=== PATIENT | female | born 1950 | race Caucasian/White ===

== ENCOUNTER → 2019-06-04 11:47 | Outpatient (BNVA) | payer MEDICARE, OTHER, SELFPAY | PROVIDERS: Family Provider Nurse Practitioner; PCP Nurse Practitioner; Visit Provider Nurse Practitioner Family | DX: S52.512A Displaced fracture of left radial styloid process, initial encounter for closed fracture (principal); W19.XXXA Unspecified fall, initial encounter | CPT/HCPCS: 73110 ==

== ENCOUNTER 2019-06-18 14:06 | Outpatient (RCR) | payer MEDICARE, OTHER, SELFPAY | END 2019-06-28 23:59 | disposition home or self-care (01) | LOC: SOT 14:06 | PROVIDERS: Family Provider Nurse Practitioner; PCP Nurse Practitioner; Referring Provider Nurse Practitioner Family; Visit Provider Nurse Practitioner Family | DX: S62.109A Fracture of unspecified carpal bone, unspecified wrist, initial encounter for closed fracture (principal); X58.XXXA Exposure to other specified factors, initial encounter | CPT/HCPCS: 97110; 97165 ==

== ENCOUNTER 2019-06-29 06:00 | Outpatient (RCR) | payer MEDICARE, OTHER, SELFPAY | END 2019-07-29 23:59 | disposition home or self-care (01) | LOC: SOT 06:00 | PROVIDERS: Family Provider Nurse Practitioner; PCP Nurse Practitioner; Referring Provider Nurse Practitioner Family; Visit Provider Nurse Practitioner Family | DX: S62.109D Fracture of unspecified carpal bone, unspecified wrist, subsequent encounter for fracture with routine healing (principal); X58.XXXD Exposure to other specified factors, subsequent encounter | CPT/HCPCS: 97530 ==

== ENCOUNTER → 2019-07-23 10:38 | Outpatient (BNVA) | payer MEDICARE, OTHER, SELFPAY | PROVIDERS: Family Provider Nurse Practitioner; PCP Nurse Practitioner; Visit Provider Nurse Practitioner | DX: M54.9 Dorsalgia, unspecified (principal); M54.5 Low back pain; M54.2 Cervicalgia; M47.814 Spondylosis without myelopathy or radiculopathy, thoracic region; M48.07 Spinal stenosis, lumbosacral region | CPT/HCPCS: 72040; 72072; 72100 ==

== ENCOUNTER → 2019-10-02 12:19 | Outpatient (BNVA) | payer MEDICARE, OTHER, SELFPAY | PROVIDERS: Family Provider Nurse Practitioner; PCP Nurse Practitioner; Visit Provider Nurse Practitioner | DX: I10 Essential (primary) hypertension (principal); J30.89 Other allergic rhinitis | CPT/HCPCS: 80053; 80061 ==

== ENCOUNTER → 2020-01-13 11:40 | Outpatient (BNVA) | payer MEDICARE, OTHER, SELFPAY | PROVIDERS: Family Provider Nurse Practitioner; PCP Nurse Practitioner; Visit Provider Nurse Practitioner | DX: E03.9 Hypothyroidism, unspecified (principal); I10 Essential (primary) hypertension | CPT/HCPCS: 80053; 80061; 84443 ==

== ENCOUNTER → 2020-05-10 14:50 | Outpatient (BNVA) | payer MEDICARE, OTHER, SELFPAY | PROVIDERS: Family Provider Nurse Practitioner; PCP Nurse Practitioner; Visit Provider Nurse Practitioner | DX: I10 Essential (primary) hypertension (principal); E03.9 Hypothyroidism, unspecified | CPT/HCPCS: 80053; 84439; 84443; 84481; 85025 ==

== ENCOUNTER 2020-05-13 13:11 | Outpatient (CLI) | payer MEDICARE, OTHER, SELFPAY | END 2020-05-13 13:12 | disposition home or self-care (01) | LOC: WOUND 13:12 | PROVIDERS: Family Provider Nurse Practitioner; PCP Nurse Practitioner; Visit Provider Thoracic Surgery (Cardiothoracic Vascular Surgery) | DX: L97.312 Non-pressure chronic ulcer of right ankle with fat layer exposed (principal) | CPT/HCPCS: 11042; G0463 ==

== ENCOUNTER 2020-05-20 14:33 | Outpatient (CLI) | payer MEDICARE, OTHER, SELFPAY | END 2020-05-20 14:34 | disposition home or self-care (01) | LOC: WOUND 14:35 | PROVIDERS: Family Provider Nurse Practitioner; PCP Nurse Practitioner; Visit Provider Thoracic Surgery (Cardiothoracic Vascular Surgery) | DX: L97.312 Non-pressure chronic ulcer of right ankle with fat layer exposed (principal) | CPT/HCPCS: 11042; 87070; 87077; 87176; 87186; 87205 ==

== ENCOUNTER → 2020-11-23 10:37 | Outpatient (BNVA) | payer MEDICARE, OTHER, SELFPAY | PROVIDERS: Family Provider Nurse Practitioner; PCP Nurse Practitioner; Visit Provider Nurse Practitioner | DX: I10 Essential (primary) hypertension (principal); E03.9 Hypothyroidism, unspecified | CPT/HCPCS: 80053; 80061; 84443 ==

== ENCOUNTER → 2021-05-16 09:59 | Outpatient (BNVA) | payer MEDICARE, OTHER, SELFPAY | PROVIDERS: Family Provider Nurse Practitioner; PCP Nurse Practitioner; Visit Provider Nurse Practitioner | DX: E03.9 Hypothyroidism, unspecified (principal); M81.0 Age-related osteoporosis without current pathological fracture; I10 Essential (primary) hypertension; R53.83 Other fatigue | CPT/HCPCS: 80053; 80061; 82306; 84443 ==

== ENCOUNTER → 2021-10-10 13:50 | Outpatient (BNVA) | payer MEDICARE, OTHER, SELFPAY | PROVIDERS: Family Provider Nurse Practitioner; PCP Nurse Practitioner; Visit Provider Nurse Practitioner | DX: F39 Unspecified mood [affective] disorder (principal); J30.89 Other allergic rhinitis; E03.9 Hypothyroidism, unspecified; I10 Essential (primary) hypertension | CPT/HCPCS: 80053; 80061; 84443 ==

== ENCOUNTER → 2022-02-13 13:28 | Outpatient (BNVA) | payer MEDICARE, OTHER, SELFPAY | PROVIDERS: Family Provider Nurse Practitioner; PCP Nurse Practitioner; Visit Provider Nurse Practitioner | DX: M25.531 Pain in right wrist (principal) | CPT/HCPCS: 73110 ==

== ENCOUNTER → 2022-03-21 10:55 | Outpatient (BNVA) | payer MEDICARE, OTHER, SELFPAY | PROVIDERS: Family Provider Nurse Practitioner; PCP Nurse Practitioner; Visit Provider Nurse Practitioner | DX: E03.9 Hypothyroidism, unspecified (principal); M25.50 Pain in unspecified joint | CPT/HCPCS: 80053; 84443; 85025; 85651; 86140 ==

== ENCOUNTER → 2022-03-29 10:55 | Outpatient (BNVA) | payer MEDICARE, OTHER, SELFPAY | PROVIDERS: Family Provider Nurse Practitioner; PCP Nurse Practitioner; Visit Provider Nurse Practitioner | DX: R52 Pain, unspecified (principal) | CPT/HCPCS: 73130; 73522 ==

== ENCOUNTER → 2022-06-21 11:32 | Outpatient (BNVA) | payer MEDICARE, OTHER, SELFPAY | PROVIDERS: Family Provider Nurse Practitioner; PCP Nurse Practitioner; Visit Provider Nurse Practitioner | DX: M47.812 Spondylosis without myelopathy or radiculopathy, cervical region (principal) | CPT/HCPCS: 72040 ==

== ENCOUNTER → 2022-11-07 10:54 | Outpatient (BNVA) | payer MEDICARE, OTHER, SELFPAY | PROVIDERS: Family Provider Nurse Practitioner; PCP Nurse Practitioner; Visit Provider Nurse Practitioner | DX: E03.9 Hypothyroidism, unspecified (principal); I10 Essential (primary) hypertension; E55.9 Vitamin D deficiency, unspecified | CPT/HCPCS: 80053; 80061; 82306; 82607; 84443 ==

== ENCOUNTER → 2023-06-13 10:32 | Outpatient (BNVA) | payer MEDICARE, OTHER, SELFPAY | PROVIDERS: Family Provider Nurse Practitioner; PCP Nurse Practitioner; Visit Provider Nurse Practitioner | DX: I10 Essential (primary) hypertension (principal); E03.9 Hypothyroidism, unspecified; F39 Unspecified mood [affective] disorder; Z79.899 Other long term (current) drug therapy | CPT/HCPCS: 80053; 80061; 84439; 84443; 84481 ==

== ENCOUNTER → 2023-07-18 11:19 | Outpatient (BNVA) | payer MEDICARE, OTHER, SELFPAY | PROVIDERS: Family Provider Nurse Practitioner; PCP Nurse Practitioner; Visit Provider Nurse Practitioner | DX: M47.897 Other spondylosis, lumbosacral region (principal); M16.0 Bilateral primary osteoarthritis of hip; M47.892 Other spondylosis, cervical region; M54.2 Cervicalgia; M54.50 Low back pain, unspecified; M79.604 Pain in right leg; M79.605 Pain in left leg; M25.50 Pain in unspecified joint | CPT/HCPCS: 72040; 72070; 72100; 73522 ==

== ENCOUNTER → 2023-12-18 16:11 | Outpatient (BNVA) | payer MEDICARE, OTHER, SELFPAY | PROVIDERS: Family Provider Nurse Practitioner; PCP Nurse Practitioner; Visit Provider Nurse Practitioner | DX: I10 Essential (primary) hypertension (principal); E03.9 Hypothyroidism, unspecified | CPT/HCPCS: 80053; 80061; 84439; 84443 ==

== ENCOUNTER 2024-05-11 09:44 | Emergency (ER) | payer MEDICARE, OTHER, SELFPAY ==
[2024-05-11 10:22] VITALS: BP 206/87; PULSE 74; RESP 16; TEMP 36.8; O2SAT 97; BMI 27.4
[2024-05-11 10:43] LABS: Basophils % 0.2 %; Eosinophils % 0.1 %; Hematocrit 42.7 % (36-47); Lymphocytes # 1.1 10^3/uL (0.8-4.8); Lymphocytes % 9.9 %; Mean Corpuscular HGB Conc 32.3 g/dL (30-55); Mean Corpuscular Hemoglobin 29.2 pg (27-33); Mean Corpuscular Volume 90.5 fl (85-98); Mean Platelet Volume 9.4 fL (7.4-10.4); Monocytes # 0.5 10^3/uL (0.2-0.9); Monocytes % 4.2 %; Neutrophils # 9.66 10^3/uL (1.8-7.7); Neutrophils % 85.2 %; Nucleated Red Blood Cells % 0 %; Platelet Count 213 10^3/cmm (157-399); Red Blood Count 4.72 10^6/uL (3.85-5.65); Red Cell Distribution Width 13.8 % (12.1-15.1); White Blood Count 11.33 10^3/uL (3.29-11.43)
[2024-05-11 10:56] VITALS: BP 188/93; PULSE 74; RESP 18; O2SAT 99
[2024-05-11 11:03] LABS: Alanine Aminotransferase 19 U/L (0-33); Albumin Level 4.2 g/dL (3.5-5.2); Alkaline Phosphatase 80 U/L (35-105); Aspartate Amino Transferase 25 U/L (0-32); Blood Urea Nitrogen 9 mg/dL (8-23); Calcium 9.7 mg/dL (8.5-10.5); Carbon Dioxide 26 mmol/L (22-29); Chloride 98 mmol/L (98-107); Globulin 2.7 g/dL (1.3-4.6); Glucose 112 mg/dL (65-115); Osmolality Calculated 281 mOsm/kg (285-295); Sodium 136 mmol/L (136-145); Total Bilirubin 0.3 mg/dL (0.15-1.2); Total Protein 6.9 g/dL (6.6-8.7)
--- NOTE | 2024-05-11 12:23 | W.ED.GENADLT ---
HPI - General Adult General: Chief complaint: General Medical Stated complaint: hypertension Time Seen by Provider: 05/11/24 11:06 History of Present Illness: 74-year-old female reports that she ate some leftover ham and sauerkraut on Sunday, 2 days ago. She started having stomach upset and diarrhea shortly thereafter. She reports diarrhea all night and into Sunday. Yesterday she noticed her blood pressure had been high. She typically takes olmesartan 10 to 20 mg as needed for elevated blood pressure. Patient reports that since her blood pressure was high yesterday after taking some olmesartan she went into the emergency department. She had blood work and IV blood pressure medication. She reports her blood work was reassuring and the blood pressure came down after 2 doses of IV hydralazine. However it came back up short time later. She was up during the night several times checking her blood pressure noting it to be between 200 & 215 systolic. Patient reports no visual changes, chest pain, anginal equivalents, neurologic symptoms, or other signs of hypertensive emergency. Patient reports she has not had any diarrhea today. She has not had any bloody stools. No abdominal pain. No fever or chills. She does not endorse any nausea or vomiting but states she just cannot bring herself to eat. No URI symptoms, cough, sputum production. No rashes or wounds. Patient does suffer from anxiety and has been taking 0.25 mg of Xanax as needed. Patient reports 1 out of 10 frontal headache Associated symptoms: Deny chest pain, dyspnea, nausea, rash, syncope or vomiting Related Data Home Medications Medication Instructions Recorded Confirmed fexofenadine 60 mg tablet (Amira 60 mg PO DAILY 06/04/19 12/18/23 Allergy) Previous Rx's Medication Instructions Recorded hydrocolloid dressing 4 X 4 #5 ea 11/10/22 (Durafiber Dressing) olmesartan 20 mg tablet 20 mg PO .at bedtime #90 tabs 01/26/23 betamethasone, augmented 0.05 % 1 applic topical BID PRN itching 01/29/23 topical cream #50 grams mupirocin 2 % topical ointment 1 applic topical BID #22 grams 01/29/23 zonisamide 25 mg capsule (Zonegran) 25 mg PO BID #180 caps 04/30/23 alprazolam 1 mg tablet (Xanax) 1 mg PO DAILY PRN anxiety #30 tabs 12/18/23 citalopram 40 mg tablet 40 mg PO DAILY #90 tabs 12/18/23 levothyroxine 100 mcg tablet 100 mcg PO QDAY #90 tabs 12/18/23 fluticasone propionate 50 2 spray intranasal DAILY PRN 02/14/24 mcg/actuation nasal allergy symptoms #16 grams spray,suspension (Flonase Allergy Relief) Allergies Allergy/AdvReac Type Severity Reaction Status Date / Time cephalexin [From Keflex] Allergy Rash Verified 05/11/24 10:28 Penicillins Allergy Rash Verified 05/11/24 10:28 duloxetine [From Cymbalta] AdvReac Severe ADR-Gastrointestinal Verified 05/11/24 10:28 Upset Review of Systems General: Reports: 10 or more systems reviewed and unremarkable except in HPI and below Const: Denies: fever(s), chills or body aches Eyes: Denies: change in vision ENMT: Denies: throat pain Card: Denies: chest pain, edema or syncope Resp: Denies: dyspnea or productive cough GI: Denies: abdominal pain, nausea or vomiting : Denies: flank pain, dysuria or urinary frequency Musc: Denies: neck pain, back pain, extremity pain or extremity swelling Skin/Breast: Denies: rash or erythema Neuro: Denies: numbness in extremities, weakness in extremities, lack of coordination or difficulty walking PFSH ED PFSH: Medical History Post-menopausal osteoporosis Chronic back pain Adult hypothyroidism Environmental and seasonal allergies Seasonal mood disorder Surgical History History of dilatation and curettage History of sinus surgery Family History Other Arthritis Hypertension Social History Smoking and tobacco/nicotine status: never used tobacco/nicotine Second hand smoke exposure: No Alcohol intake: never Substance/Drug Use: never Adopted: No Caregiver/support person: No Lives independently: Yes Household members: none Housing: House Marital status: service: No Do you think of yourself as: Straight/Heterosexual Current gender identity: Female Physical Exam Narrative: EXAM NARRATIVE: Alert, oriented, sitting up, conversational. Blood pressure in the 180s over 90s. Patient seems to be very upset by her blood pressure. She seems to have an anxious affect. She explains that she has taken olmesartan 40 mg total for the last 12 hours and her blood pressure is still high. She has hyperactive bowel sounds but otherwise of normal abdominal exam. No flank tenderness. Grade 2 quiet systolic murmur suggested right of sternum. No JVD. Const: COMMON NORMALS: no limitations, alert and well nourished EXAM LIMITATIONS: no altered mental status HENMT: COMMON NORMALS: normocephalic, atraumatic and external ears normal HEAD & SCALP: normocephalic and atraumatic EXTERNAL EAR: Yes external ears normal MOUTH: no muffled voice Eye: COMMON NORMALS: EOMs intact bilaterally, conjunctivae normal and no scleral icterus CONJUNCTIVA: Yes conjunctivae normal Neck/C-Spine: COMMON NORMALS: no JVD GENERAL: Yes normal visual inspection and Yes trachea midline Resp: COMMON NORMALS: normal respiratory effort, No use of accessory muscles and clear to auscultation bilaterally AUSCULTATION: clear to auscultation bilaterally Cardio: COMMON NORMALS: no JVD, regular rate and regular rhythm RATE: regular rate RHYTHM: regular rhythm GI: COMMON NORMALS: Soft to palpation and non-tender PALPATION: Yes Soft to palpation and No Guarding due to palpation present (GI) Extremity: COMMON NORMALS: normal to inspection Neuro: COMMON NORMALS: moves all extremities, no focal motor deficits and no sensory deficits noted SENSORIUM/ORIENTATION: Yes alert SPEECH: speech normal Psych: COMMON NORMALS: mental status grossly normal, Normal thought process present, cooperative and speech normal SPEECH: Yes normal speech THOUGHT PROCESS: Normal thought process present Skin: COMMON NORMALS: no rashes or lesions noted, turgor normal and no jaundice GENERAL SKIN EXAM: no rashes or lesions noted and turgor normal Course Vital Signs: Vital signs: Vital Signs Temperature 98.2 F 05/11/24 10:22 Pulse Rate 74 05/11/24 10:56 Respiratory Rate 18 05/11/24 10:56 Blood Pressure 192/84 05/11/24 12:35 Pulse Oximetry 99 05/11/24 10:56 Oxygen Delivery Me thod Room Air 05/11/24 10:56 MDM - General Adult Medical Decision Making 1. Hypertensive urgency without any hypertensive emergency. Frontal headache may be related to blood pressure or maybe not. Patient does seem very upset about her blood pressure and anxious in general. I suspect this is contributing to her high blood pressure. In general, it seems that her elevated blood pressure is secondary to underlying illness rather than the primary cause of her symptoms. Patient has agreed to try 1/2 mg of Ativan and some clonidine to see if it helps rather than using IV blood pressure medication at this time. 2. UTI is considered along with gastroenteritis, dehydration, electrolyte disturbances, renal dysfunction, colitis, enteritis, no other causes of acute diarrhea. The patient's abdominal exam was benign and she does not have tachycardia or fever. At this time I do not find any indication for CT scan as the pretest probability for significant colitis, ischemia, perforation, abscess, etc. is low. Update: After patient was given lorazepam, her blood pressure was down to 133 over 80s. Daughter states she seemed much more at peace and comfortable. The clonidine was given almost as a placebo type medication at a low dose of 0.1 mg. I hypothesized that we do have dramatic improvement in her blood pressure with lorazepam alone. I think this was proven since the blood pressure drop before clonidine would have even had a chance to absorb. Additionally, I also hypothesized that as soon as I began talking to the patient again in the room her blood pressure would come back up. This was proven true as after I explained all of her findings and the impression, her blood pressure came back up into the upper 140s and she began asking about do I have a blockage anywhere in my body, and questioning multiple different vague somatic symptoms. She seems to have anxiety disorder and it is unclear to me whether this is acute or chronic. Regardless, I do not recommend any further treatment of her blood pressure since it seems to be a secondary problem rather than the primary problem. She has not had any diarrhea here. Her labs are reassuring. No UTI. Patient may be discharged home. Have advised that she only check her blood pressure over the next 3 days if she has strokelike symptoms, visual changes, chest pressure or tightness, shortness of breath, urinary changes or swelling. Otherwise, I would wait 3 days before checking blood pressure again because it seems to upset her and create a vicious cycle Lab Data 05/11/24 10:35 05/11/24 10:35 Laboratory Results WBC 11.33 10^3/uL (3.29-11.43) 05/11/24 10:35 RBC 4.72 10^6/uL (3.85-5.65) 05/11/24 10:35 Hgb 13.80 g/dL (11.27-16.99) 05/11/24 10:35 Hct 42.7 % (36-47) 05/11/24 10:35 MCV 90.5 fl (85-98) 05/11/24 10:35 MCH 29.2 pg (27-33) 05/11/24 10:35 MCHC 32.3 g/dL (30-55) 05/11/24 10:35 RDW 13.8 % (12.1-15.1) 05/11/24 10:35 Plt Count 213 10^3/cmm (157-399) 05/11/24 10:35 MPV 9.4 fL (7.4-10.4) 05/11/24 10:35 Neut % (Auto) 85.2 % 05/11/24 10:35 Lymph % (Auto) 9.9 % 05/11/24 10:35 [place] % (Auto) 4.2 % 05/11/24 10:35 Eos % (Auto) 0.1 % 05/11/24 10:35 Baso % (Auto) 0.2 % 05/11/24 10:35 Neut # (Auto) 9.66 10^3/uL (1.8-7.7) H 05/11/24 10:35 Lymph # (Auto) 1.1 10^3/uL (0.8-4.8) 05/11/24 10:35 [place] # (Auto) 0.5 10^3/uL (0.2-0.9) 05/11/24 10:35 Eos # (Auto) 0.0 10^3/uL (0.0-0.8) 05/11/24 10:35 Baso # (Auto) 0.0 10^3/uL (0.0-0.1) 05/11/24 10:35 Nucleated RBC % (auto) 0 % 05/11/24 10:35 Nucleated RBCs # 0.0 /100WBC 05/11/24 10:35 Sodium 136 mmol/L (136-145) 05/11/24 10:35 Potassium 4.0 mmol/L (3.5-5.1) 05/11/24 10:35 Chloride 98 mmol/L (98-107) 05/11/24 10:35 Carbon Dioxide 26 mmol/L (22-29) 05/11/24 10:35 Anion Gap 16.0 (5-19) 05/11/24 10:35 BUN 9 mg/dL (8-23) 05/11/24 10:35 Creatinine 0.7 mg/dL (0.5-0.9) 05/11/24 10:35 GFR Calculation Not Reportable 05/11/24 10:35 Glucose 112 mg/dL (65-115) 05/11/24 10:35 Calculated Osmolality 281 mOsm/kg (285-295) L 05/11/24 10:35 Calcium 9.7 mg/dL (8.5-10.5) 05/11/24 10:35 Total Bilirubin 0.3 mg/dL (0.15-1.2) 05/11/24 10:35 AST 25 U/L (0-32) 05/11/24 10:35 ALT 19 U/L (0-33) 05/11/24 10:35 Alkaline Phosphatase 80 U/L (35-105) 05/11/24 10:35 Total Protein 6.9 g/dL (6.6-8.7) 05/11/24 10:35 Albumin 4.2 g/dL (3.5-5.2) 05/11/24 10:35 Globulin 2.7 g/dL (1.3-4.6) 05/11/24 10:35 Urine Color Yellow (Yellow) 05/11/24 12:33 Urine Appearance Clear (CLEAR) 05/11/24 12: Urine pH 7.0 (5-7) 05/11/24 12: Ur Specific [place] 1.007 (1.005-1.030) 05/11/24 12:33 Urine Protein Negative (Negative) 05/11/24 12: Urine Glucose (UA) Negative (Normal) 05/11/24 12: Urine Ketones 1+ (Negative) H 05/11/24 12:33 Urine Blood Negative (Negative) 05/11/24 12:33 Urine Nitrate Negative (Negative) 05/11/24 12:33 Urine Bilirubin Negative (Negative) 05/11/24 12:33 Urine Urobilinogen 0.2 mg/dL (Negative) 05/11/24 12:33 Ur Leukocyte Esterase Negative (Negative) 05/11/24 12:33 Urine RBC 0-2 /hpf (0-2) 05/11/24 12:33 Urine WBC 0-5 /hpf (0-5) 05/11/24 12:33 Ur Squamous Epith Cells 0-5 /hpf (0-5) 05/11/24 12:33 Amorphous Sediment Not Reportable 05/11/24 12:33 Urine Bacteria None seen /hpf (NONE) 05/11/24 12:33 Hyaline Casts 0.40 /lpf 05/11/24 12:33 No radiology studies performed this visit Discharge Plan Discharge Patient Disposition: Home Clinical Impression: Situational hypertension Condition: Stable Prescriptions: No Action fexofenadine [Amira Allergy] 60 mg tablet 60 mg PO DAILY (DME) hydrocolloid dressing [Durafiber Dressing] 4 X 4 bandage See Rx Instructions .Route Qty: 5 0RF Rx Instructions: As directed citalopram 40 mg tablet 40 mg PO DAILY Qty: 90 1RF alprazolam [Xanax] 1 mg tablet 1 mg PO DAILY PRN (Reason: anxiety) Qty: 30 5RF levothyroxine 100 mcg tablet 100 mcg PO QDAY Qty: 90 1RF olmesartan 20 mg tablet 20 mg PO .at bedtime Qty: 90 0RF betamethasone, augmented 0.05 % cream 1 applic TOPICAL BID PRN (Reason: itching) Qty: 50 2RF mupirocin 2 % ointment 1 applic topical BID Qty: 22 0RF zonisamide [Zonegran] 25 mg capsule 25 mg PO BID Qty: 180 1RF fluticasone propionate [Flonase Allergy Relief] 50 mcg/actuation spray,suspension 2 spray INTRANASAL DAILY PRN (Reason: allergy symptoms) Qty: 16 5RF Rx Instructions: administer into each nostril Discharge Orders: Discharge ED (Routine); Ordered 05/11/24 Ordered By: Kalen Swift Referrals: Lilian Almeida FNP-C [Primary Care Provider] - 05/15/24 (Follow-up elevated blood pressure, anxiety, diarrhea) Patient Instructions: Hypertension (ED) Activity Restrictions/Additional Instructions: Please resume a normal diet and exercise. You do not need to check your blood pressure over the next 3 days unless you have strokelike symptoms, shortness of breath, chest pressure, swelling, decreased urine output, visual changes or other emergency symptoms. Follow-up with your doctor on . Coding Level of Care Code ED Physical Chemistry Professor for Phillip Travis
[2024-05-11 12:35] VITALS: BP 192/84
[2024-05-11] MEDS: cloNIDine 0.1 mg Tablet PO (12:35)
[2024-05-11] MEDS: LORazepam 2 mg/mL INJ 1 mL 0.5 MG IVP (12:37)
[2024-05-11 12:49] LABS: Bilirubin Urine Negative (Negative); Blood Urine Negative (Negative); Glucose Urine UA Negative (Normal); Ketones Urine 1+ (Negative); Leukocyte Esterase Urine Negative (Negative); Nitrate Urine Negative (Negative); Protein Urine Negative (Negative); Specific Gravity, Urine 1.007 (1.005-1.030); Urine Appearance Clear (CLEAR); Urine Color Yellow (Yellow); Urobilinogen Urine 0.2 mg/dL (Negative)
[2024-05-11 12:53] LABS: Add Urine Microscopic? YES; Bacteria Urine None Seen /hpf; RBC Urine 0-2 /hpf (0-2); Squamous Epithelial Cell Urine 0-5 /hpf (0-5); WBC Urine 0-5 /hpf (0-5)
[2024-05-11 14:21] VITALS: BP 144/37; PULSE 70; O2SAT 94
== END 2024-05-11 14:25 | disposition home or self-care (01) ==
PROVIDERS: Emergency Medicine; Emergency Provider Emergency Medicine; Family Provider Nurse Practitioner; PCP Nurse Practitioner
DX: I10 Essential (primary) hypertension (principal)
CPT/HCPCS: 80053; 81001; 85025; 96374; 99284; J2060

== ENCOUNTER → 2024-05-13 15:06 | Outpatient (BNVA) | payer MEDICARE, OTHER, SELFPAY | PROVIDERS: Family Provider Nurse Practitioner; PCP Nurse Practitioner; Visit Provider Nurse Practitioner | DX: R19.7 Diarrhea, unspecified (principal) | CPT/HCPCS: 87045; 87427; 87449 ==

== ENCOUNTER → 2024-05-14 09:41 | Outpatient (BNVA) | payer MEDICARE, OTHER, SELFPAY | PROVIDERS: Family Provider Nurse Practitioner; PCP Nurse Practitioner; Visit Provider Nurse Practitioner | DX: R19.7 Diarrhea, unspecified (principal) | CPT/HCPCS: 83630 ==

== ENCOUNTER → 2024-06-06 09:56 | Outpatient (BNVA) | payer MEDICARE, OTHER, SELFPAY | PROVIDERS: Family Provider Nurse Practitioner; PCP Nurse Practitioner; Visit Provider Nurse Practitioner | DX: E03.9 Hypothyroidism, unspecified (principal); I10 Essential (primary) hypertension | CPT/HCPCS: 80053; 80061; 84443 ==

== ENCOUNTER → 2024-08-07 13:29 | Outpatient (BNVA) | payer MEDICARE, OTHER, SELFPAY | PROVIDERS: Family Provider Nurse Practitioner; PCP Nurse Practitioner; Visit Provider Nurse Practitioner | DX: M25.561 Pain in right knee (principal); M25.562 Pain in left knee; M76.891 Other specified enthesopathies of right lower limb, excluding foot; R93.6 Abnormal findings on diagnostic imaging of limbs; M25.50 Pain in unspecified joint | CPT/HCPCS: 73562; 85651; 86140 ==

== ENCOUNTER → 2024-12-12 10:03 | Outpatient (BNVA) | payer MEDICARE, OTHER, SELFPAY | PROVIDERS: Family Provider Nurse Practitioner; PCP Nurse Practitioner; Visit Provider Nurse Practitioner | DX: I10 Essential (primary) hypertension (principal); E03.9 Hypothyroidism, unspecified; E55.9 Vitamin D deficiency, unspecified | CPT/HCPCS: 80053; 80061; 82306; 82607; 84439; 84443; 84481 ==